=== PATIENT | male | born 1975 | race Two or more races ===

== ENCOUNTER 2023-08-24 15:39 | Emergency (ER) | payer MEDICAID, OTHER ==
[~2023-08-24] VITALS: Ht 177.8 cm; Wt 70.0 kg
[2023-08-24] MEDS: ONDANSETRON ODT 4 MG TAB PO ONE (16:29)
[2023-08-24] MEDS: HYDROcodone-ACET 10/325MG TAB PO ONE (16:29)
[2023-08-24] MEDS ORDERED: HYDR-4798 PO (18:08)
[2023-08-24] MEDS ORDERED: IBUP-1455 PO (18:08)
[2023-08-24] MEDS: NEOMYCIN-BACITRACIN-POLYM UNITDOSE PKG TOP OINT TOP ONE (18:19)
[2023-08-24] MEDS: TETANUS-DIPTH-ACEL PERTUSSIS 0.5ML SYR Tdap IM ONE (18:20)
[2023-08-24 18:37] VITALS: BP 142/77; PULSE 67; RESP 17; TEMP 98.7; O2SAT 98
== END 2023-08-24 18:39 | disposition home or self-care (01) ==
LOC: EDBD 15:39 → ER 15:39
DX: S82.832A Other fracture of upper and lower end of left fibula, initial encounter for closed fracture (principal); S82.302A Unspecified fracture of lower end of left tibia, initial encounter for closed fracture; V87.8XXA Person injured in other specified noncollision transport accidents involving motor vehicle (traffic), initial encounter; Y93.55 Activity, bike riding; Y92.488 Other paved roadways as the place of occurrence of the external cause; Y99.8 Other external cause status
CPT/HCPCS: 29505; 73590; 90471; 90715; 99284; Q0162